=== PATIENT | female | born 1955 | race Caucasian/White ===

== ENCOUNTER → 2019-04-21 | Outpatient (CLI) | payer BC ==
--- NOTE | 2019-04-21 10:22 | RAD ---
Examination: Ultrasound posterior right upper arm HISTORY: History of lump in the posterior right upper arm COMPARISON: None available. Findings/ impression: There is a slight hyperechoic region identified in the posterior upper arm measuring 6.7 x 3.7 x 1.9 cm and demonstrating some vascularity within, difficult to characterize ,could be mass Recommend MRI with IV contrast for further evaluation. Electronically signed by: Swapnil Salomon MD (04/21/2019 10:20 AM) [id number]
== END | disposition home or self-care (01) ==
LOC: US 08:53
PROVIDERS: ATTEND Physician Assistant Medical
DX: D17.21 Benign lipomatous neoplasm of skin and subcutaneous tissue of right arm (principal)
CPT/HCPCS: 76881

== ENCOUNTER → 2019-06-30 | Outpatient (CLI) | payer BC ==
--- NOTE | 2019-06-30 12:13 | RAD ---
EXAM: Right shoulder, 3 views. HISTORY: Lipoma. COMPARISON: None. FINDINGS: 3 views of the right shoulder obtained. There is no fracture, dislocation or subluxation. There is slight decreased subacromial space which is likely projectional or due to chronic rotator cuff pathology. There is a fat density lesion along the posterior shoulder soft tissues. There is a healed right sixth rib fracture. IMPRESSION: 1. No acute osseous finding. 2. Fat density lesion along the posterior shoulder soft tissues, better characterized on the sonogram dated 04/21/2019. Electronically signed by: Phuong Alvarez MD (06/30/2019 12:10 PM) [place] [id number]
== END | disposition home or self-care (01) ==
LOC: RAD 11:31
PROVIDERS: ATTEND Physician Assistant Medical
DX: M79.89 Other specified soft tissue disorders (principal)
CPT/HCPCS: 73030